=== PATIENT | male | born 1970 | race Two or more races ===

== ENCOUNTER 2016-12-01 20:13 | Emergency (ER) | payer OTHER ==
[2016-12-01 20:27] VITALS: BP 161/90; PULSE 61; RESP 20; TEMP 96.9
[2016-12-01] MEDS ORDERED: DIPH,PERTUS(ACELL)TETVAC-LF 0.5 ML VIAL IM ONE (20:32)
--- NOTE | 2016-12-01 20:32 | ED ---
Skin/Abscess/FB HPI - General Chief complaint: Skin/Abscess/Foreign Body Stated complaint: fish hook in finger Time Seen by Provider: 12/01/16 20:23 Source: patient, RN notes reviewed Mode of arrival: ambulatory Limitations: no limitations - History of Present Illness Initial comments: 46-year-old male presents emergency Department chief complaint of fishhook to the right middle finger. This happened earlier today. He does not recall his last tetanus. He denies any other injury from the incident. Patient states he did have a fishhook in the thumb as well. He removed it himself.Patient denies any recent fever, chills, shortness of breath, chest pain, back pain, abdominal pain, nausea vomiting, numbness or tingling, dysuria or hematuria, constipation or diarrhea, headaches or visual changes, or any other current symptoms. - Related Data Home Medications Medication Instructions Recorded Confirmed Unable To Assess [Unable to Assess] 12/01/16 12/01/16 Allergies Allergy/AdvReac Type Severity Reaction Status Date / Time No Known Allergies Allergy Verified 12/01/16 20:27 Review of Systems ROS Statement: Those systems with pertinent positive or pertinent negative responses have been documented in the HPI. ROS Other: All systems not noted in ROS Statement are negative. Past Medical History Past Medical History: Diabetes Mellitus, Myocardial Infarction ([place]) History of Any Multi-Drug Resistant Organisms: None Reported Past Surgical History: Coronary Bypass/CABG Past Psychological History: No Psychological Hx Reported Smoking Status: Former smoker Past Alcohol Use History: Occasional Past Drug Use History: None Reported General Exam - General Exam Comments Initial Comments: General: The patient is awake and alert, in no distress, and does not appear acutely ill. Neck: The neck is supple, there is no tenderness. Cardiovascular: There is a regular rate and rhythm. No murmur, rub or gallop is appreciated. Respiratory: Lungs are clear to auscultation, respirations are non-labored, breath sounds are equal. No wheezes, stridor, rales, or rhonchi. Musculoskeletal: Sensation intact to plus pulses at the reaction. Full range of motion of right hand. There is a fishhook in the distal aspect of the right third digit. 5. Muscle strength testing throughout. Neurological: CN II-XII intact, There are no obvious motor or sensory deficits. Coordination appears grossly intact. Speech is normal. Skin: Skin is warm and dry and no rashes or lesions are noted. Psychiatric: Normal mood and affect. Limitations: no limitations Course Vital Signs 12/01/16 20:18 Temperature 96.9 F L Pulse Rate 61 Respiratory 20 Rate Blood Pressure 161/90 O2 Sat by Pulse 96 Oximetry Procedures - Procedures Initial comment: The area was cleaned and prepped. 3 mL of lidocaine was injected into the area. The hook was then pushed through the skin with numerous pliers. This was then removed. Patient tolerated well. Medical Decision Making - Medical Decision Making 46-year-old male presents for facial to the right hand. We did offer the patient x-ray as well as updating his tetanus which she has refused to be did discuss wrist He stated he understood. Like to go home. We did locally block the area and did remove the needle. Patient tolerated well. Patient will be discharged home. Discussed return parameters and follow-up. Patient is in agreement. Disposition Clinical Impression: Fish hook injury of right middle finger Disposition: HOME SELF-CARE Condition: Stable Instructions: Acute Wound Care (ED) Additional Instructions: Please use medication as discussed. Please follow up with family doctor if symptoms have not improved over the next two days. Please return to the emergency room if your symptoms increase or worsen or for any other concerns. Referrals: Shayy Rosen MD [STAFF PHYSICIAN] - 1-2 days Time of Disposition: 20:32
== END 2016-12-01 20:48 | disposition home or self-care (01) ==
LOC: EC 20:13
DX: S60.452A Superficial foreign body of right middle finger, initial encounter (principal); Z87.891 Personal history of nicotine dependence; W45.8XXA Other foreign body or object entering through skin, initial encounter
CPT/HCPCS: 99283

== ENCOUNTER 2020-02-26 23:25 | Emergency (ER) | payer OTHER ==
[2020-02-26 23:39] VITALS: BP 156/86; PULSE 62; RESP 18; TEMP 97.9
[2020-02-26] MEDS ORDERED: DIPH,PERTUS(ACELL)TETVAC-LF 0.5 ML VIAL IM ONE (23:58)
[2020-02-26] MEDS ORDERED: LIDOCAINE 1% INJ 10MG/ML (20 ML MDV) SQ ONE (23:58)
[2020-02-27] MEDS ORDERED: CEPHALEXIN 500MG STARTER PACK 4 CAP BTL PO STA (00:19)
[2020-02-27] MEDS ORDERED: BACITRACIN OINT 1 EACH PACKET TOPICAL ONE (00:19)
--- NOTE | 2020-02-27 00:21 | ED ---
Skin/Abscess/FB HPI - General Chief complaint: Skin/Abscess/Foreign Body Stated complaint: Hook in finger Time Seen by Provider: 02/26/20 23:41 Source: patient Mode of arrival: ambulatory - History of Present Illness Initial comments: 49-year-old male patient presents to the emergency department today for evaluation of fishhook foreign body to the third digit on the left hand. Patient states that the fishhook became lodged approximately 30 minutes prior to arrival. States that he did attempt to get it out on his own but was unsuccessful. Patient denies any significant pain to the area. He is unsure when his last tetanus vaccine was administered. Denies any other injuries or concerns. Patient denies any headache, neck pain, back pain, chest pain, shortness of breath, dizziness, weakness, abdominal pain, nausea, vomiting, or difficulties with bowel movements or urination. - Related Data Previous Rx's Medication Instructions Recorded Cephalexin [Keflex] 500 mg PO BID #10 cap 02/27/20 Allergies Allergy/AdvReac Type Severity Reaction Status Date / Time No Known Allergies Allergy Verified 02/26/20 23:39 Review of Systems ROS Statement: Those systems with pertinent positive or pertinent negative responses have been documented in the HPI. ROS Other: All systems not noted in ROS Statement are negative. Past Medical History Past Medical History: Diabetes Mellitus, Myocardial Infarction ([place]) History of Any Multi-Drug Resistant Organisms: None Reported Past Surgical History: Coronary Bypass/CABG, Hernia Repair Past Psychological History: No Psychological Hx Reported Smoking Status: Former smoker Past Alcohol Use History: Occasional Past Drug Use History: None Reported General Exam General appearance: alert, in no apparent distress, other Respiratory exam: Present: normal lung sounds bilaterally. Absent: respiratory distress, wheezes, rales, rhonchi, stridor Cardiovascular Exam: Present: regular rate, normal rhythm, normal heart sounds. Absent: systolic murmur, diastolic murmur, rubs, gallop, clicks Extremities exam: Present: full ROM, normal capillary refill, other (There is a fishhook foreign body noted to the lateral aspect of the left third digit. No current bleeding. Mild swelling noted. Skin is otherwise pink, warm, dry. Cap refills less than 3 seconds. Radial pulses 2+). Absent: normal inspection, tenderness, pedal edema, joint swelling, calf tenderness Neurological exam: Present: alert, oriented X3, CN II-XII intact Psychiatric exam: Present: normal affect, normal mood Skin exam: Present: warm, dry, intact, normal color. Absent: rash Course Vital Signs 02/26/20 23:37 Temperature 97.9 F Pulse Rate 62 Respiratory 18 Rate Blood Pressure 156/86 O2 Sat by Pulse 98 Oximetry Procedures - Forgein Body Removal Soft Tissue Consent Obtained: verbal consent Site: hand (Left third digit) Anesthetic Used: lidocaine 1% Amount (mLs): 1 Foreign Body Suspected: Fish Hook Foreign Body Removed: yes Foreign Body Removal Technique: Instrumentation Patient Tolerated Procedure: well, no complications Additional Comments: Area was prepped with iodine and anesthetized. Attempt was made to remove the hook and was unsuccessful. Stepped out of the room to obtain assistance, upon my return patient had used the hemostats to remove the fishhook himself. Medical Decision Making - Medical Decision Making 49-year-old male patient presented to the emergency department today for evaluation of fishhook foreign body to the left third digit. Physical examination did reveal a to the left finger. Neurovascular status is intact. [place] was removed as documented. He'll be discharged with Keflex as he is diabetic. His tetanus was updated. He is instructed to follow-up with his primary care physician for recheck in 1-2 days. Return parameters discussed in detail. He verbalizes understanding and agrees with this plan. Disposition Clinical Impression: [place] injury to finger Disposition: HOME SELF-CARE Condition: Good Instructions (If sedation given, give patient instructions): Soft Tissue Foreign Body (ED) Additional Instructions: Keep area clean and dry. Complete antibiotic prescription and full. Follow-up with your primary care physician for recheck in 1-2 days. Return to the emergency department immediately for any new, worsening, or concerning symptoms. Prescriptions: Cephalexin [Keflex] 500 mg PO BID #10 cap Is patient prescribed a controlled substance at d/c from ED?: No Referrals: Mikey Gutierrez MD [Primary Care Provider] - 1-2 days Time of Disposition: 00:21
== END 2020-02-27 00:33 | disposition home or self-care (01) ==
LOC: EC 23:25
DX: S60.453A Superficial foreign body of left middle finger, initial encounter (principal); E11.9 Type 2 diabetes mellitus without complications; Z23 Encounter for immunization; I25.2 Old myocardial infarction; Z95.1 Presence of aortocoronary bypass graft; Z87.891 Personal history of nicotine dependence; X58.XXXA Exposure to other specified factors, initial encounter
CPT/HCPCS: 90715; 10120; 99283; 90471; J2001